=== PATIENT | female | born 1975 | race Asian ===

== ENCOUNTER 2016-06-27 16:02 | Inpatient (IN) | payer BC, SELFPAY ==
--- NOTE | ~2016-06-27 | PA ---
Unit #: [id number] #: [id number] Patient: CHICO JEFFRIES [id number] [facility] [address] [place] [address] [id number] MR#: [id number] NAME: CHICO JEFFRIES ROOM: P258 Age: 40 Sex: F Admission Date: 06/27/2016 : 1975 Date of Assessment: 06/28/2016 Attending Physician: Robert Marshall M.D. Admitting Physician: Robert Marshall M.D. Primary Care Physician: Generic Doctor Not In System PSYCHIATRIC ASSESSMENT IDENTIFYING INFORMATION The patient is a 40-year-old, -Togolese female admitted to the [address] [place] [address] unit with depression and suicidal ideation. CHIEF COMPLAINT None given. INFORMANT Patient. Patient's reliability is good. HISTORY OF PRESENT ILLNESS The patient is a 40-year-old, -Togolese female admitted to the [facility] unit with increasing symptoms of depression and suicidal ideation. The reports multiple stressors, mainly related to her children and employment, which has culminated in her having suicidal thoughts with plan to jump in the river or overdose on baclofen. Patient reports that her 18-year-old son recently announced that he is a bisexual and has been missing a great deal of school. The patient also reports that she has difficulty at her workplace and has been skipping work and driving and sitting by the river contemplating jumping in to kill herself. The patient reports no previous suicide attempts of gestures. She has never seen a psychiatrist and never been psychiatrically hospitalized. Her primary care physician had treated her with Zoloft, but had stopped this medication and more recently, approximately 2 weeks ago, had started the patient on Cymbalta, which the patient is now taking at a dose of 60 mg daily. She is tolerating the medication without complaint, but feels no clinical response as of yet. 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 She denies recent changes in sleep or appetite. She lives with her and two children. She describes her as supportive. PAST PSYCHIATRIC HISTORY As above. PAST MEDICAL HISTORY Significant for history of migraine headaches and neck pain. Patient also suffers from environmental allergies. MEDICATIONS 1. Baclofen. 2. Zyrtec. 3. Cymbalta. Unit #: [id number] #: [id number] Patient: CHICO JEFFRIES 4. Inderal. 5. Topamax. 6. Vitamin D. 7. Xanax. ALLERGIES None reported. FAMILY HISTORY The patient is adopted and has no knowledge of her family history. SOCIAL HISTORY The patient is originally from [facility]. She is employed at the [employer]. She is a patient management retail intern. She reports substance use history as noted previously. She does not smoke cigarettes. MENTAL STATUS EXAMINATION At this time reveals the patient to be a well developed, well nourished, -Togolese female appearing her stated age. She is in no apparent physical distress at the time of the examination. She is awake, alert, and oriented in all spheres. Her mood is dysphoric. Her affect is constricted. Speech is generally relevant and coherent. There are no gross deficits in memory or cognition noted. Intelligence is judged to be in the average range based on fund of knowledge. Patient is cooperative throughout the interview. She is currently endorsing positive suicidal ideation. She denies homicidal ideation. She denies any psychotic symptoms. Her judgement and insight appear to be reasonably intact. ASSETS AND LIABILITIES ASSETS: Motivation for change. LIABILITIES: Parent/child issues. DIAGNOSTIC IMPRESSION 1. Major depressive disorder, recurrent, moderate. 2. Migraine headache by history. 3. Environmental allergies. TREATMENT PLAN The patient remains hospitalized for safety and stabilization. At this point, her trial of Cymbalta has not yet had an adequate period of time to exert a clinical effect and we will continue her on a 60 mg dose of this medication. Other medications will be continued, though I do have some concerns regarding the patient's Xanax use given her substance abuse history. ESTIMATED LENGTH OF STAY IN THE HOSPITAL Three to five days with follow up to take place through the auspices of the intensive outpatient or partial hospitalization program provided by this facility and [facility]. Dictated by... Robert Marshall M.D. MESHA/micaela Unit #: [id number] #: [id number] Patient: CHICO JEFFRIES TD: 06/28/2016 13:01 JOB #: [id number] PSYCHIATRIC ASSESSMENT Page 1 of 1 X Robert Marshall MD PSYCHIATRIC ASSESSMENT
--- NOTE | ~2016-06-27 | PN ---
Unit #: [id number] #: [id number] Patient: CHICO JEFFRIES [id number] [facility] [address] [place] [address] [id number] I MR#: [id number] NAME: CHICO JEFFRIES ROOM: P258 Age: 40 Sex: F Admission Date: 06/27/2016 : 1975 Attending Physician: Robert Marshall M.D. Admitting Physician: Robert Marshall M.D. Primary Care Physician: Tanisha Doctor Not In System [facility] PROGRESS NOTES DATE 06/29/2016 DISCUSSION The patient is in somewhat brighter spirits today and is reporting reduction in suicidal ideation. He continues to complain of some lack of motivation but is tolerating the 60-mg dose of Cymbalta without complaint. I have spoken with her regarding possible augmenting strategies, i.e., possible addition of Wellbutrin, but feel as though Cymbalta monotherapy should be afforded an opportunity to exert its clinical effect prior to any initiation of augmentation. I expect a.m. discharge, and the patient is expressing interest in partial hospitalization followup. Dictated by... Robert Marshall M.D. CB/billy TD: 06/29/2016 14:21 JOB #: [id number] [facility] NOTES Page 1 of 1 X Robert Marshall MD PROGRESS NOTE
--- NOTE | ~2016-06-27 | HP ---
Unit #: [id number] #: [id number] Patient: CHICO JEFFRIES [id number] [place] [address] [id number] I MR#: [id number] NAME: CHICO JEFFRIES ROOM: P258 Age: 40 Sex: F Admission Date: 06/27/2016 : 1975 Attending Physician: Robert Marshall M.D. Admitting Physician: Robert Marshall M.D. Primary Care Physician: Generic Doctor Not In System HISTORY AND PHYSICAL HISTORY OF PRESENT ILLNESS Chico is a 40 year old admitted to [address] [place] [address] with depression and verbalizing wanting to hurt herself. PAST MEDICAL HISTORY 1. History of migraine headaches 2. Seasonal allergies PAST SURGICAL HISTORY Hysterectomy ALLERGIES No known drug allergies. SOCIAL HISTORY She does not smoke, drinks alcohol on occasion. Admits to using marijuana daily. FAMILY HISTORY Medically noncontributory. REVIEW OF SYSTEMS CONSTITUTIONAL: No fever or chills. HEENT: Denies any sore throat, ear pain or runny nose. CARDIOVASCULAR: Denies chest pain, irregular heart rhythm or palpitations. CHEST: Denies shortness of breath or cough. No hemoptysis. GASTROINTESTINAL: Denies nausea, vomiting, diarrhea or chronic constipation. ENDOCRINE: Denies history of increased thirst or urination. No recent significant weight loss or gain. GENITOURINARY: Denies dysuria, frequency, or hematuria. SKIN: Denies any rashes. HEMATOLOGIC: Denies history of increased bleeding or bruising. MUSCULOSKELETAL: Denies any hot, swollen joints. No generalized muscle pain. NEUROLOGIC: Denies problems with vision or speech. No frequent, severe headaches. No numbness, tingling or weakness in any extremities. Denies loss of bladder or bowel control. CURRENT MEDICATIONS No orders received at the time of this dictation. Unit #: [id number] #: [id number] Patient: CHICO JEFFRIES PHYSICAL EXAMINATION GENERAL: Alert, well-nourished, in no apparent distress. VITAL SIGNS: Blood pressure 120/56, heart rate 80, respirations 16, temperature 98.6. SKIN: Warm and dry without rash or lesion. HEENT: Normocephalic. TMs not viewed. Oral and nasal passages clear. Conjunctivae clear. Pupils equal, round and reactive to light and accommodation. Extraocular movements intact. NECK: Supple without lymphadenopathy or thyromegaly. HEART: Regular rate and rhythm without murmur. LUNGS: Clear. ABDOMEN: Soft, nontender. : Not done. EXTREMITIES: No evidence of cyanosis, clubbing or edema. Moves all extremities without focal deficit. NEUROLOGICAL: Grossly within normal limits. Cranial Nerves: II: Visual perez are intact. III, IV AND : Extraocular movements are intact. Pupils are equal, round and reactive to light. V: Facial sensation is grossly normal. VII: Facial movements and expression are normal. VIII: Auditory acuity grossly intact. IX, X: Uvula is midline. Phonation is normal. XI: Patient shrugs shoulders and turns head normally. XII: Tongue protrudes in the midline. Sensory and Motor Function: Sensory and motor sensation is grossly normal. Motor: moves all extremities well. Coordination: Gait is normal. Deep Tendon Reflexes: Intact. IMPRESSION Psychiatric admission RECOMMENDATIONS PSYCHIATRIC: Per psychiatrist. MEDICAL: I see no contraindications to participating in facility's activities. MEDICAL PROGNOSIS Good. MEDICAL CONDITION Stable. Dictated by... Nory Niño P.A.-C. for Tracie Franklin/cruz TD: 06/27/2016 23:27 JOB #: [id number] Unit #: [id number] #: [id number] Patient: CHICO JEFFRIES HISTORY AND PHYSICAL Page 1 of 1 X Nory Niño X HISTORY AND PHYSICAL
--- NOTE | ~2016-06-27 | DS ---
Unit #: [id number] #: [id number] Patient: CHICO JEFFRIES [id number] [place] [address] [id number] I MR#: [id number] NAME: CHICO JEFFRIES ROOM: [facility] Age: 40 Sex: F Admission Date: 06/27/2016 : 1975 Discharge Date: 06/30/2016 Attending Physician: Robert Marshall M.D. Primary Care Physician: Generic Doctor Not In System DISCHARGE SUMMARY REASON FOR ADMISSION The patient is a 40-year-old Croatian female, admitted to the [facility] with increasing depression and suicidal ideation. HOSPITAL COURSE The patient was admitted to the [facility] and placed on suicide precautions. She was continued on Zoloft 60 mg daily, a medication which she had only started shortly prior to entering the hospital. The patient showed significant brightening of mood and affect, and by 06/30/2016, requested discharge and it was so ordered. FINAL DIAGNOSES Major depressive disorder, recurrent, moderate; migraine headache by history; and environmental allergies. DISPOSITION ON DISCHARGE The patient is discharged on the following medications; Cymbalta 60 mg daily for depression, Topamax 100 mg at bedtime for migraine headache, Xanax 0.25 mg b.i.d. for anxiety, Inderal 80 mg once daily for hypertension, vitamin D 50,000 units three times weekly for vitamin D supplementation, Claritin 10 mg daily for environmental allergies, and baclofen 10 mg q.8 hours p.r.n. muscle pain. DISCHARGE INSTRUCTIONS No dietary or physical restrictions were placed on the patient at the time of discharge. FOLLOWUP Followup will take place through the auspices of community mental health resources. PROGNOSIS The patient's prognosis is considered fair. Dictated by... Robert Marshall M.D. CB/ruthann TD: 06/30/2016 14:52 JOB #: [id number] Unit #: [id number] #: [id number] Patient: CHICO JEFFRIES DISCHARGE SUMMARY Page 1 of 1 X Robert Marshall MD X DISCHARGE SUMMARY
[2016-06-28 17:02] LABS: BASOPHIL% 0.5 % (0-2.5); EOSINOPHIL# 0.4 X10e3 (0-0.7); EOSINOPHIL% 6.5 % (0.0-7.0); HEMATOCRIT 42.7 % (35.0-45.0); HEMOGLOBIN 13.8 gm/dL (12.0-16.0); LYMPHOCYTE# 2.8 X10e3 (1.0-3.5); LYMPHOCYTE% 41.5 % (17.0-45.0); MEAN CORPUSCULAR HEMOGLOBIN 28.8 PG (28-34); MEAN CORPUSCULAR HGB CONC 32.3 g/dL (30-36); MEAN PLATELET VOLUME 8.2 FL (6.5-11.5); MONOCYTE# 0.5 X10e3 (0-1.0); MONOCYTE% 7.4 % (3.0-12.0); NEUTROPHIL% 44.1 % (40-75); PLATELET COUNT 307 X10e3 (140-420); RED CELL DISTRIBUTION WIDTH 13.1 % (11.0-15.5); WHITE BLOOD COUNT 6.8 X10e3 (4.0-10.5)
[2016-06-28 17:03] LABS: URINE APPEARANCE CLEAR; URINE BILIRUBIN NEG (NEG); URINE BLOOD 2+ (NEG); URINE COLOR YELLOW; URINE GLUCOSE NEG (NEG); URINE KETONE 2+ (NEG); URINE LEUKOCYTE ESTERASE NEG (NEG); URINE NITRATE NEG (NEG); URINE PH 5.5 (5-8); URINE PROTEIN NEG (NEG); URINE SPECIFIC GRAVITY 1.017 (1.003-1.035); URINE UROBILINOGEN 0.2 MG/DL (NEG)
[2016-06-28 17:06] LABS: DIFF IND NO
[2016-06-28 17:06] LABS: URINE BACTERIA AUWI NEG (NEGATIVE); URINE SQUAMOUS EPITHELIAL CELL NONE SEEN /[HPF]; UWBCS1 AUWI 0-2 (0-5)
[2016-06-28 17:13] LABS: ALBUMIN SERUM 4.7 g/dL (3.5-5.0); BILIRUBIN,TOTAL 0.7 mg/dL (0.2-2.0); BUN/CREATININE RATIO 14.28; CALCIUM SERUM 9.7 mg/dL (8.4-10.2); CREATININE SERUM 0.7 mg/dL (0.6-1.4); GLOM FILT RATE Estimated 106.9 mL/min (>60); POTASSIUM 4.3 mmol/L (3.5-5.1)
[2016-06-28 17:19] LABS: AMPHETAMINE NEG (NEG); BARBITURATES NEG (NEG); BENZODIAZEPINES POS (NEG); COCAINE NEG (NEG); MARIJUANA POS (NEG); OPIATES NEG (NEG); TRICYCLIC ANTIDEPRESSANTS NEG (NEG); U METHADONE NEG (NEG)
== END 2016-06-30 16:00 | disposition home or self-care (01) | DRG 885 ==
LOC: P2L 16:02
PROVIDERS: Specialist
DX: F33.1 Major depressive disorder, recurrent, moderate (principal); G43.909 Migraine, unspecified, not intractable, without status migrainosus
CPT/HCPCS: 80053; 80307; 81003; 85025